=== PATIENT | female | born 1990 | race American Indian/Alaskan Native ===

== ENCOUNTER 2019-07-20 16:19 | Emergency (ER) | payer SELFPAY ==
[2019-07-20 17:34] VITALS: BP 133/91
--- NOTE | 2019-07-20 17:35 | Event Note ---
ED Screening Note Date of service: 07/20/19 Time: 17:32 ED Screening Note: This is a 29 y.o. F. that presents to the ER with pelvic and low back pain x 1 week. Taking NSAIDs without improvement of symptoms Denies urinary symptoms, vaginal discharge, diarrhea + nausea LMP 07/07/2019 This initial assessment/diagnostic orders/clinical plan/treatment(s) is/are subject to change based on patients health status, clinical progression and re- assessment by fellow clinical providers in the ED. Further treatment and workup at subsequent clinical providers discretion. Patient/guardian urged not to elope from the ED as their condition may be serious if not clinically assessed and managed. Initial orders include: Labs
[2019-07-20 18:51] LABS: Basophils # (Auto) 0.1 K/mm3 (0.0-0.1); Basophils % (Auto) 1.1 % (0.0-1.8); Eosinophils % (Auto) 0.6 % (0.0-4.3); Hematocrit 44.3 % (30.3-42.9); Hemoglobin 14.5 gm/dl (10.1-14.3); Lymphocytes # (Auto) 2.6 K/mm3 (1.2-5.4); Lymphocytes % (Auto) 38.7 % (13.4-35.0); Mean Corpuscular HGB Conc 33 % (30-34); Mean Corpuscular Volume 91 fl (79-97); Monocytes # (Auto) 0.6 K/mm3 (0.0-0.8); Monocytes % (Auto) 9.6 % (0.0-7.3); Platelet Count 360 K/mm3 (140-440); Red Blood Count 4.89 M/mm3 (3.65-5.03)
[2019-07-20 18:56] LABS: Bilirubin,Urine NEG (Negative); Blood,Urine NEG (Negative); Color,Urine Yellow (Yellow); Mucus,Urine 2+ /HPF; Urobilinogen,Urine < 2.0 mg/dL (<2.0)
[2019-07-20 19:16] LABS: Alanine Aminotransferase 18 units/L (7-56); Albumin 4.4 g/dL (3.9-5); BUN/Creatinine Ratio 12; Blood Urea Nitrogen 11 mg/dL (7-17); Calcium 9.3 mg/dL (8.4-10.2); Hemolysis Index 57
[2019-07-20] MEDS ORDERED: ZOFRAN ODT PO ONE (20:07)
[2019-07-20] MEDS ORDERED: TORADOL IM ONE (20:07)
--- NOTE | 2019-07-20 22:10 | Cat Scan Report ---
CT abdomen pelvis wo con INDICATION: MAIN: pelvis, LOWER BACK, GROIN AND PELVIC PAIN X1WEEK. TECHNIQUE: All CT scans at this location are performed using CT dose reduction for ALARA by means of automated e xposure control. COMPARISON: None available. FINDINGS: Lung bases are clear. Liver, gallbladder, spleen, pancreas, kidneys and adrenals appear negative on t his noncontrast exam. Abdominal aorta is normal in size. Pelvis Normal appendix. Urinary bladder is mostly collapsed but grossly unremarkable. Uterus is absent. No f ree fluid or inflammatory change. No skeletal lesions. IMPRESSION: 1. No acute abnormality. Signer Name: Victor M Quintanilla MD Signed: 07/20/2019 10:06 PM Workstation Name: [id number]
--- NOTE | 2019-07-20 22:33 | Emergency Department Report ---
ED General Adult HPI - General Chief complaint: Abdominal Pain Stated complaint: PELVIC PAIN/LOW BACK PAIN Time Seen by Provider: 07/20/19 17:32 Source: patient Mode of arrival: Ambulatory Limitations: No Limitations - History of Present Illness Initial comments: Patient is a 29-year-old -[place] transgender male who presents to the ED with acute onset persistent severe left inguinal pain that radiates to the lower back for the last 4 days. Patient states that in the last 2 days the pain has worsened. Patient denies dysuria, urinary frequency and urgency, hematuria, abdominal pain, nausea, vomiting, testicular pain, traumatic injury, heavy lifting, fall or diarrhea. MD Complaint: left inguinal Pain -: Sudden Location: pelvis (left inguinal area), lower extremity (left inguinal area) Radiation: back (lower) Severity scale (0 -10): 7 Quality: aching, sharp Consistency: constant Improves with: none Worsens with: movement Associated Symptoms: denies other symptoms. denies: confusion, chest pain, cough, diaphoresis, fever/chills, headaches, loss of appetite, syncope, weakness Treatments Prior to Arrival: none - Related Data Previous Rx's Medication Instructions Recorded Last Taken Type Cyclobenzaprine [Flexeril] 10 mg PO Q8H PRN #15 tablet 07/20/19 Unknown Rx Naproxen 500 mg PO Q12H PRN #20 tablet 07/20/19 Unknown Rx Ondansetron [Zofran Odt] 4 mg PO Q6HR PRN #15 tab.rapdis 07/20/19 Unknown Rx Allergies Allergy/AdvReac Type Severity Reaction Status Date / Time No Known Allergies Allergy Unverified 07/20/19 16:24 ED Review of Systems ROS: Stated complaint: PELVIC PAIN/LOW BACK PAIN Other details as noted in HPI Constitutional: denies: chills, fever Eyes: denies: eye pain, eye discharge, vision change ENT: denies: ear pain, throat pain Respiratory: denies: cough, shortness of breath, wheezing Cardiovascular: denies: chest pain, palpitations Endocrine: no symptoms reported Gastrointestinal: denies: abdominal pain, nausea, vomiting, diarrhea, hematochezia Genitourinary: denies: urgency, dysuria, discharge Musculoskeletal: arthralgia (left inguinal muscle pain), myalgia. denies: back pain, joint swelling Skin: denies: rash, lesions Neurological: denies: headache, weakness, paresthesias Psychiatric: denies: anxiety, depression Hematological/Lymphatic: denies: easy bleeding, easy bruising ED Past Medical Hx - Past Medical History Previous Medical History?: No - Surgical History Past Surgical History?: No - Social History Smoking Status: Never Smoker Substance Use Type: Alcohol - Medications Home Medications: Home Medications Medication Instructions Recorded Confirmed Last Taken Type Cyclobenzaprine [Flexeril] 10 mg PO Q8H PRN #15 tablet 07/20/19 Unknown Rx Naproxen 500 mg PO Q12H PRN #20 tablet 07/20/19 Unknown Rx Ondansetron [Zofran Odt] 4 mg PO Q6HR PRN #15 tab.rapdis 07/20/19 Unknown Rx ED Physical Exam - General Limitations: No Limitations General appearance: alert, in no apparent distress - Head Head exam: Present: atraumatic, normocephalic, normal inspection - Eye Eye exam: Present: normal appearance, PERRL, EOMI Pupils: Present: normal accommodation - ENT ENT exam: Present: normal exam, normal orophraynx, mucous membranes moist, TM's normal bilaterally, normal external ear exam - Neck Neck exam: Present: normal inspection, full ROM. Absent: tenderness - Respiratory Respiratory exam: Present: normal lung sounds bilaterally. Absent: respiratory distress, wheezes, rales, rhonchi, stridor, chest wall tenderness, accessory muscle use, decreased breath sounds, prolonged expiratory - Cardiovascular Cardiovascular Exam: Present: regular rate, normal rhythm, normal heart sounds. Absent: systolic murmur, diastolic murmur, rubs, gallop - GI/Abdominal GI/Abdominal exam: Present: soft, normal bowel sounds. Absent: tenderness, guarding, rebound, hyperactive bowel sounds, hypoactive bowel sounds, organomegaly - Extremities Exam Extremities exam: Present: normal inspection, full ROM, tenderness (Palpable left inguinal muscle strain), normal capillary refill - Back Exam Back exam: Present: normal inspection, tenderness (Mildly tender left lumbosacral musculoskeletal tenderness), muscle spasm, paraspinal tenderness - Neurological Exam Neurological exam: Present: alert, oriented X3, CN II-XII intact, normal gait, r eflexes normal - Psychiatric Psychiatric exam: Present: normal affect, normal mood - Skin Skin exam: Present: warm, dry, intact, normal color. Absent: rash ED Course Vital Signs 07/20/19 17:33 Temperature 98.3 F Pulse Rate 77 Respiratory 18 Rate Blood Pressure 133/91 O2 Sat by Pulse 99 Oximetry - Reevaluation(s) Reevaluation #1: 07/20/19 22:37 This is a 29-year-old transgender male who presented to the ED with left inguinal pain that radiates to the lower back. In the ED, patient is alert and oriented 3 and is not in distress. Lab test results were reviewed and are all nonactionable. Abdomen pelvis CT scan without contrast shows no acute abnormality in the abdomen and pelvis. Patient symptoms are likely musculoskeletal characterized by left inguinal muscle strain. Patient was treated for pain and on reevaluation, patient's pain is well controlled with medications. Patient was discharged home on medications and muscle relaxants and advised to follow-up with her primary care physician in 7-10 days for reevaluation. Patient was advised to return to the ED immediately if symptoms get worse. ED Medical Decision Making - Lab Data Result diagrams: 07/20/19 18:37 07/20/19 18:37 - Radiology Data Radiology results: report reviewed, image reviewed Abdomen pelvis CT scan without contrast shows no acute abdominal or pelvis abnormalities. - Medical Decision Making This is a 29-year-old transgender male who presented to the ED with left inguinal pain that radiates to the lower back. In the ED, patient is alert and oriented 3 and is not in distress. Lab test results were reviewed and are all nonactionable. Abdomen pelvis CT scan without contrast shows no acute abnormality in the abdomen and pelvis. Patient symptoms are likely musculoskel etal characterized by left inguinal muscle strain. Patient was treated for pain and on reevaluation, patient's pain is well controlled with medications. Patient was discharged home on medications and muscle relaxants and advised to follow-up with her primary care physician in 7-10 days for reevaluation. Patient was advised to return to the ED immediately if symptoms get worse. - Differential Diagnosis Kidney stones; abdominal pain; Muscle strain; Muscle spasm Critical care attestation.: If time is entered above; I have spent that time in minutes in the direct care of this critically ill patient, excluding procedure time. ED Disposition Clinical Impression: Acute pain of left hip, Spasm of muscle of lower back Strain of left inguinal muscle Qualifiers: Encounter type: initial encounter Qualified Code(s): S39.013A - Strain of muscle, fascia and tendon of pelvis, initial encounter Disposition: TO HOME OR SELFCARE Is pt being admited?: No Does the pt Need Aspirin: No Condition: Stable Instructions: Abdominal Pain (ED), Muscle Strain (ED), Arthralgia (ED) Additional Instructions: Take medication with food, drink plenty of fluids and follow-up with your primary care physician in 7-10 days for reevaluation. Return to the ED immediately if symptoms get worse. Prescriptions: Cyclobenzaprine [Flexeril] 10 mg PO Q8H PRN #15 tablet PRN Reason: Muscle Spasm Naproxen 500 mg PO Q12H PRN #20 tablet PRN Reason: Pain , Severe (7-10) Ondansetron [Zofran Odt] 4 mg PO Q6HR PRN #15 tab.rapdis PRN Reason: Nausea Referrals: PRIMARY CARE, [Primary Care Provider] - 3-5 Days Time of Disposition: 22:26 Print Language: TUVALUAN
== END 2019-07-20 22:50 | disposition home or self-care (01) ==
LOC: ED 16:19
DX: S39.013A Strain of muscle, fascia and tendon of pelvis, initial encounter (principal); M62.830 Muscle spasm of back; X58.XXXA Exposure to other specified factors, initial encounter; Y93.89 Activity, other specified; Y92.89 Other specified places as the place of occurrence of the external cause; Y99.8 Other external cause status
CPT/HCPCS: 36415; 74176; 80053; 81001; 84703; 85025; 96372; 99284; J1885; Q0162

== ENCOUNTER 2020-07-27 10:29 | Emergency (ER) | payer OTHER ==
[2020-07-27 10:33] VITALS: BP 143/86
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
== END 2020-07-27 14:37 | disposition home or self-care (01) ==
LOC: ED 10:29
DX: S16.1XXA Strain of muscle, fascia and tendon at neck level, initial encounter (principal); S29.012A Strain of muscle and tendon of back wall of thorax, initial encounter; R07.89 Other chest pain; M79.671 Pain in right foot; I10 Essential (primary) hypertension; Z79.899 Other long term (current) drug therapy; V49.49XA Driver injured in collision with other motor vehicles in traffic accident, initial encounter; W22.10XA Striking against or struck by unspecified automobile airbag, initial encounter; Y93.89 Activity, other specified; Y92.410 Unspecified street and highway as the place of occurrence of the external cause; Y99.8 Other external cause status
CPT/HCPCS: 71046; 72040; 72072